=== PATIENT | female | born 1950 | race Caucasian/White ===

== ENCOUNTER 2020-03-28 13:53 | Emergency (ER) | payer MEDICARE, OTHER ==
[~2020-03-28] VITALS: Ht 162.6 cm; Wt 61.5 kg
[2020-03-28 13:59] VITALS: BP 127/71
[2020-03-28] MEDS ORDERED: ACETAMINOPHEN 500 MG TABLET PO ONE (14:30)
[2020-03-28] MEDS ORDERED: ACETAMINOPHEN 500 MG TABLET ONE (14:45)
--- NOTE | 2020-03-28 14:50 | NUR ---
MEDICATED PER ORDERS. VSS
--- NOTE | 2020-03-28 16:10 | NUR ---
Patient/Caregiver given discharge instructions and they have confirmed that they understand the instructions. Patient ambulatory with steady gait.
== END 2020-03-28 16:12 | disposition home or self-care (01) ==
LOC: ED 16:00
DX: S52.572A Other intraarticular fracture of lower end of left radius, initial encounter for closed fracture (principal); S09.90XA Unspecified injury of head, initial encounter; R94.31 Abnormal electrocardiogram [ECG] [EKG]; I25.2 Old myocardial infarction; W11.XXXA Fall on and from ladder, initial encounter; Y93.89 Activity, other specified; Y92.009 Unspecified place in unspecified non-institutional (private) residence as the place of occurrence of the external cause; Y99.8 Other external cause status
CPT/HCPCS: 29125; 93005; 99283

== ENCOUNTER → 2020-05-17 | Outpatient (CLI) | payer MEDICARE | END | disposition home or self-care (01) | LOC: CFH 10:01 | PROVIDERS: ATTEND Internal Medicine Cardiovascular Disease | DX: I25.10 Atherosclerotic heart disease of native coronary artery without angina pectoris (principal) | CPT/HCPCS: 93306 ==